=== PATIENT | female | born 1950 | race African-American/Black ===

== ENCOUNTER 2020-08-28 06:26 | Observation (INO) ==
[2020-08-28] MEDS ORDERED: Pantoprazole VIAL 40 MG VIAL IV ONE (06:38)
[2020-08-28] MEDS ORDERED: NS 0.9% 1000 ml BAG 1,000 ML IV ONE (06:38)
[2020-08-28] MEDS ORDERED: Ondansetron 4 mg VIAL 2 MG/ML 2 ml VIAL IV ONE (06:38)
[2020-08-28] MEDS ORDERED: Al Hydrox/Mg Hydrox/Simet LIQ 30 ML UDC PO ONE (06:43)
[2020-08-28 07:17] LABS: ABS Lymphocytes 1.3 10^3/ul (1.0-4.8); ABS Monocytes 0.4 10^3/ul (0-0.8); ABS Neutrophils 8.6 10^3/ul (1.5-7.7); Eosinophil % 0.1 %; Hematocrit 42 % (35-47); Hemoglobin 13.9 g/dL (12.0-16.0); Lymphocyte % 12.6 %; Mean Corpuscular HGB Conc 33 g/dL (31-36); Mean Corpuscular Hemoglobin 30 pg (27-31); Mean Corpuscular Volume 89 fL (80-97); Mean Platelet Volume 7.4 fL (7.4-10.4); Nucleated Red Blood Cells % 0.1; Platelet Count 353 10^3/uL (150-450); Red Blood Count 4.72 10^6 /uL (3.70-4.87); Red Cell Distribution Width 13 % (10-15); White Blood Count 10.4 10^3/uL (3.5-10.8)
[2020-08-28] MEDS ORDERED: Morphine 2 MG/ML SYRINGE IV ONE (07:33)
[2020-08-28 07:38] LABS: ALT 13 U/L (7-52); AST 18 U/L (13-39); Albumin 4.2 g/dL (3.2-5.2); Alkaline Phosphatase 70 U/L (34-104); Anion Gap 7 mmol/L (2-11); BUN/Creatinine Ratio 21.4 (8-20); Blood Urea Nitrogen 15 mg/dL (6-24); C Reactive Protein 1.63 mg/L (<8.01); CO2 Carbon Dioxide 26 mmol/L (22-32); Calcium 9.3 mg/dL (8.6-10.3); Chloride 103 mmol/L (101-111); EGFR African American 100.4 (>60); Globulin 4.3 g/dL (2-4); Glucose 149 mg/dL (70-100); Lipase < 10 U/L (11.0-82.0); Magnesium 1.9 mg/dL (1.9-2.7); Sodium 136 mmol/L (135-145); Total Protein 8.5 g/dL (6.4-8.9)
[2020-08-28] MEDS ORDERED: Iohexol 300 (CONTRAST) 10 ML SDV IV ONE (08:16)
[2020-08-28 08:25] LABS: Urine Appearance Clear; Urine Bilirubin Negative (Negative); Urine Blood Negative (Negative); Urine Color Straw; Urine Glucose 1+(50 mg/dL) (Negative); Urine Ketones Trace (Negative); Urine Nitrite Negative (Negative); Urine Protein Negative (Negative); Urine Urobilinogen Negative (Negative)
[2020-08-28] MEDS ORDERED: Ondansetron 4 mg VIAL 2 MG/ML 2 ml VIAL IV PRN (13:12)
[2020-08-28] MEDS: HYDROmorphone 0.5 MG/0.5 ML SYRINGE IV SLOW PU PRN ×2 (16:03→19:38)
[2020-08-28] MEDS: Lactated Ringers 1000 ml BAG 1,000 ML IV SCH (16:09)
[2020-08-29] MEDS: Lactated Ringers 1000 ml BAG 1,000 ML IV SCH (02:01)
[2020-08-29 10:49] LABS: Albumin 3.8 g/dL (3.2-5.2); BUN/Creatinine Ratio 21.1 (8-20); Calcium 9.3 mg/dL (8.6-10.3); EGFR African American 91.3 (>60); EGFR Non-African American 75.5 (>60); Globulin 3.9 g/dL (2-4); Total Bilirubin 0.5 mg/dL (0.2-1.0); Total Protein 7.7 g/dL (6.4-8.9)
[2020-08-29] MEDS ORDERED: Buffered Lidocaine 1% SYRIN 1 ml INTRADERM ONE (11:25)
[2020-08-29] MEDS ORDERED: diPHENhydraMINE IV 50 MG/ML 1 ml VIAL (BENADRYL) IV PRN (11:32)
[2020-08-29] MEDS ORDERED: Prochlorperazine 5 mg/ml 2 ml VIAL (10 mg) IV PRN (11:32)
[2020-08-29] MEDS ORDERED: Naloxone 0.4 mg VIAL 0.4 mg/ml 1 ml VIAL IV PRN (11:32)
[2020-08-29] MEDS ORDERED: HYDROmorphone 1 MG/1 ML SYRINGE IV PRN (11:32)
[2020-08-29] MEDS ORDERED: Lactated Ringers 1000 ml BAG 1,000 ML IV SCH (12:00)
[2020-08-29] MEDS ORDERED: Bupivacaine 0.25% SDV 30 ML ONE (12:37)
[2020-08-29] MEDS ORDERED: Midazolam 2 mg/2 ml VIAL 1 mg/ml 2 ml VIAL (2 mg) ONE (12:42)
[2020-08-29] MEDS ORDERED: fentaNYL 250 mcg/5 ml 50 MCG/ML 5 ml VIAL (250 MCG) ONE (12:42)
[2020-08-29] MEDS ORDERED: Propofol 10 MG/ML 20 ML BTL ONE (12:43)
[2020-08-29] MEDS ORDERED: Lidocaine 2% PF 5 ML VIAL ONE (12:43)
[2020-08-29] MEDS ORDERED: Rocuronium 50 mg VIAL 10 mg/ml 5 ml VIAL (50 mg) ONE ×2 (12:47→15:02)
[2020-08-29] MEDS ORDERED: ceFAZolin 2 GM PREMIX 2 GM/50 ML BAG ONE (12:53)
[2020-08-29] MEDS ORDERED: Dexamethasone IV 4 MG/ML VIAL 1 ml VIAL ONE (13:25)
[2020-08-29] MEDS ORDERED: Ondansetron 4 mg VIAL 2 MG/ML 2 ml VIAL ONE (13:25)
[2020-08-29] MEDS ORDERED: Phenylephrine 40 mcg/mL 10mL (400mcg) SYRINGE ONE (13:29)
[2020-08-29] MEDS ORDERED: EPHEDrine (Pressors) 50 MG/ML VIAL ONE (13:37)
[2020-08-29] MEDS ORDERED: HYDROmorphone 1 MG/1 ML SYRINGE ONE (14:02)
[2020-08-30 11:37] VITALS: BP 140/57
[2020-09-01] MEDS ORDERED: Scopolamine PATCH Remove NOTE PATCH OFF ONE (11:31)
== END 2020-08-30 13:00 | disposition home or self-care (01) ==
LOC: ED 06:26 → SSU 13:12 → INTOOBSV 13:12
PROVIDERS: ADMIT Hospitalist; ATTEND Surgery Surgical Critical Care